=== PATIENT | female | born 1980 | race Caucasian/White ===

== ENCOUNTER 2022-02-09 10:23 | Inpatient (IN) ==
[2022-02-09] MEDS ORDERED: LORazepam 1 MG TAB SL STA (10:57)
--- NOTE | 2022-02-09 10:59 | Emergency Department Note ---
Impression & Plan ST elevation (STEMI) myocardial infarction involving left anterior descending coronary artery, Coronary artery disease ED Provider Note NAME: DANELLE CROWE AGE: 42 SEX: F : 1980 ARRIVES VIA: Walk-In INFORMANT: Patient ED PROVIDER(S): Rudi Castaneda DO CHIEF COMPLAINT: palpitations HPI: Patient is a 42-year-old female with a past medical history of miscarriage who presents to the ER for palpitations. She notes she felt her heart racing since this past Saturday. It has been constant. Is worse when she is up and moving around and improves with rest. She had some mild shortness of breath yesterday. No arm or jaw pain. No belly pain, nausea, vomiting, or diarrhea. No dysuria, urgency, or frequency. No other exacerbating or remitting factors. She denies any history of diabetes, hypertension, hyperlipidemia, CAD but does have a strong family history of heart disease in her 40s. ROS: See above HPI for pertinent positives & negatives. A total of 10 systems reviewed and were otherwise negative. PAST MEDICAL HISTORY:See Below PAST SURGICAL HISTORY:See Below FAMILY HISTORY:See Below SOCIAL HISTORY:See Below HOME MEDICATIONS:See Below ALLERGIES:See Below VITALS:See Below PHYSICAL EXAMINATION: GENERAL: Sitting up in bed, alert, well appearing, well nourished, no distress, non-toxic, obese EYE EXAM: normal conjunctiva. PERRL and EOM's grossly intact. OROPHARYNX: mucous membranes are moist NECK: supple, no nuchal rigidity, no adenopathy, non-tender LUNGS: Clear to auscultation. Normal chest wall mechanics HEART: no murmurs, S1 normal and S2 normal ABDOMEN: abdomen soft, non-tender, normo-active bowel sounds, no masses, no rebound or guarding. UPPER EXTREMITIES: upper extremities are grossly normal. LOWER EXTREMITIES: No pitting edema. Calves are equal bilateral NEURO EXAM: Normal sensorium, cranial nerves II-XII grossly intact, normal speech, no gross weakness of arms, no gross weakness of legs. MEDICAL DECISION MAKING: Patient is a 42-year-old female who presents ER for shortness of breath yesterday and feeling her heart race for the past 3 days. She denies any chest pain. Patient was very upset that she had to have an IV and notes that she normally requires 70 people to hold her down and had to be sedated with 5 of Versed last time. We initially obtained an EKG which showed a STEMI. Following this she was given 2 of Ativan and IV access was obtained while holding her down. She was seen evaluated by interventional cardiology and taken emergently to the lab. They defer chest x-ray until after catheterization. Triage Nursing notes reviewed. Limited review of prior medical records performed Vital Signs: reviewed and remarkable for tachy Differential diagnosis: Differential diagnoses includes but is not limited to pneumonia, bronchitis, COPD/Asthma exacerbation, pneumothorax, pulmonary embolism, congestive heart fa ilure, acute coronary syndrome ER treatment provided: See below Diagnostics interpreted by me: ECG: Sinus rhythm rate of 106 ST segment elevations V3 through V6 with ST depressions in the inferior leads and Q waves Cardiac Monitoring: An order was placed for continuous cardiac monitoring. The monitor shows a rate of 101 with sinus rhythm. Laboratory studies: As stated above and show below. Imaging studies: declined Consultation(s): Discussed with substance abuse clinician Dr. Patton who took the patient to [facility]. Procedures: none Critical Care: I have personally spent 32 minutes of critical care time in the direct management of this patient. This includes bedside care, interpretation of diagnostic studies, and testing, discussion with consultants, patient, and family members, and other required patient management activities. This 32 minutes is in excess of all separately billable procedures. Past Med/Surg History Social History Smoking Status: Never smoker Second Hand Exposure: No; Do You Dip or Chew Tobacco: No; Tobacco Cessation Education Requested by Patient: No Hx Alcohol Use: No Hx Substance Use: No Preferred Language: Turkish Communication Ability: Effective Restaurant Recruiter Required: No Beliefs That Will Affect Care: None Current Living Situation: Spouse and Family Other Information That Helps Us Care for You: No Feels Safe at Home: Yes Safety Concerns: Feels Safe At This Time Assistive Devices: None Allergies Allergies Allergy/AdvReac Type Severity Reaction Status Date / Time No Known Allergies Unverified 05/03/10 20:36 Home Meds Home Medications Medication Instructions Recorded Confirmed METFORMIN HCL (GLUCOPHAGE) 1,000 mg PO BID ##0 02/02/15 Results & Data (ED) Vital Signs Vital Signs - 24 hr 02/09/22 10:34 02/09/22 12:07 Temperature 36.6 C Temperature Source Temporal Artery Scan Pulse Rate 118 H Pulse Rate [Apical] 117 H Pulse Rhythm Regular Pulse Rhythm [Apical] Regular Pulse Strength Normal Pulse Strength [Apical] Normal Respiratory Rate 20 14 Respiratory Effort / Characteristics Non-Labored Spontaneous Non-Labored Spontaneous Respiratory Depth Normal Normal Respiratory Pattern Regular Regular Blood Pressure 123/87 Blood Pressure [Right Arm] 130/92 Blood Pressure Mean 99 Blood Pressure Mean [Right Arm] 104 Blood Pressure Position Sitting Blood Pressure Position [Right Arm] Lying Pulse Oximetry 97 100 Oxygen Delivery Method Room Air Nasal Cannula Oxygen Flow Rate 4 Sepsis Recent Fever Within 48 Hours No Sepsis New/Unexplained Change in Mental Status No Sepsis Action Taken by Nursing No Action Required Laboratory Data Result diagrams: 02/09/22 11:08 02/09/22 11:08 Lab Results 02/09/22 02/09/22 02/09/22 Range/Units 11:08 11:08 11:10 WBC 15.60 H (4.8-10.8) K/ul RBC 4.97 (3.93-5.22) M/uL Hgb 14.2 (12.0-16.0) g/dl Hct 43.9 (34.1-44.9) % MCV 88.3 (80.0-100.0) fL MCH 28.6 (25.0-34.0) pg MCHC 32.3 (32.0-36.0) g/dL RDW Std Deviation 45.6 (36.4-46.3) fL RDW Coeff of Cliff 14.3 (11.5-14.5) % Plt Count 359 (130-400) K/uL MPV 11.7 (9.4-12.3) fL Immature Gran % (Auto) 0.4 % Neut % (Auto) 67.5 % Lymph % (Auto) 21.7 % [place] % (Auto) 8.5 % Eos % (Auto) 1.3 % Baso % (Auto) 0.6 % Neut # (Auto) 10.54 H (1.4-6.5) K/uL Lymph # (Auto) 3.38 (1.2-3.4) K/uL [place] # (Auto) 1.33 H (0.24-0.82) K/uL Eos # (Auto) 0.20 (0-0.50) K/uL Baso # (Auto) 0.09 (0-0.2) K/uL Immature Gran # (Auto) 0.06 H (0.00-0.02) K/uL Sodium 133 L (136-145) mmol/L Potassium 4.1 (3.5-5.1) mmol/L Chloride 103 (98-107) mmol/L Carbon Dioxide 13 L (21-32) mmol/L Anion Gap 17 H (3-11) BUN 11 (6-23) mg/dl Creatinine 0.72 (0.6-1.2) mg/dl Est Cr Clr Drug Dosing 108.4 ml/min Est GFR ( Amer) 119.7 ml/min Est GFR (Non-Af Amer) 103.3 ml/min BUN/Creatinine Ratio 15.3 (10-20) Glucose 307 H* (70-99(Fasting)) mg/dl Calcium 9.5 (8.5-10.1) mg/dl Total Bilirubin 0.5 (0.2-1.0) mg/dl AST 30 (13-39) U/L ALT 14 (7-52) U/L Alkaline Phosphatase 90 (34-104) U/L Troponin I High Sens 4705.3 H* (0-14) pg/ml Total Protein 8.1 (6.0-8.3) gm/dl Albumin 3.9 (3.4-5.0) gm/dl Globulin 4.2 H (2.5-4.0) gm/dl Albumin/Globulin Ratio 0.9 (0.9-2) Lipase < 3 L (11-82) U/L SARS-CoV-2, RNA, NAAT NEGATIVE (NEGATIVE) Administered Medications Heparin Sodium/Dextrose (Heparin Sodium/Dextrose) 25,000 units in 500 mls @ 24 mls/hr IV .[id number] [facility]; Protocol Stop: 03/11/22 13:59 Last Admin: 02/09/22 14:25 Dose: 1,200 units/hr, 24 mls/hr Documented By: ABRAHAM Co-signed By: CG Discontinued Medications Aspirin (Aspirin Chew 324 Mg) 324 mg PO NOW STA Stop: 02/09/22 11:05 Last Admin: 02/09/22 13:27 Dose: Not Given Documented By: ABRAHAM Atorvastatin Calcium (Atorvastatin 40 Mg Tab) 40 mg PO ONE ONE Stop: 02/09/22 12:16 Last Admin: 02/09/22 15:17 Dose: 40 mg Documented By: ABRAHAM Diphenhydramine HCl (Diphenhydramine 50 Mg/Ml Vial) Confirm Administered Dose 50 mg .ROUTE .STK-MED ONE Stop: 02/09/22 11:26 Last Admin: 02/09/22 12:00 Dose: 25 mg Documented By: AURORA Fentanyl Citrate (Fentanyl Citrate 100 Mcg/2 Ml Vial) Confirm Administered Dose 100 mcg .ROUTE .STK-MED ONE Stop: 02/09/22 11:10 Last Admin: 02/09/22 11:59 Dose: 100 mcg Documented By: AURORA Heparin Sodium (Porcine) (Heparin (Porcine) 1000 Unit/Ml 10 Ml (Clock And Watch Hands Dipper Use Only)) Confirm Administered Dose 10,000 units .ROUTE .STK-MED ONE Stop: 02/09/22 11:10 Last Admin: 02/09/22 11:59 Dose: 6,500 units Documented By: AURORA Heparin Sodium/Dextrose (Heparin 78617 Unit/500 Ml D5w) Confirm Administered Dose 25,000 units IV .STK-MED ONE Stop: 02/09/22 12:33 Last Admin: 02/09/22 12:39 Dose: 800 units Documented By: KARLA Co-signed By: AGUSTIN Heparin Sodium/Sodium Chloride (Heparin In Nss Infusion 1000 Unit/500 Ml (2 U/Ml) Bag) Confirm Administered Dose 3,000 units IV .STK-MED ONE Stop: 02/09/22 11:11 Last Admin: 02/09/22 12:00 Dose: 3,000 units Documented By: SETH Heparin Sodium/Dextrose (Heparin Sodium/Dextrose) 25,000 units in 500 mls @ 16 mls/hr IV .Q24H JULISSA; Protocol Stop: 03/11/22 12:29 Last Titration: 02/09/22 14:25 Dose: 0 units/hr, 0 mls/hr Documented By: ABRAHAM Co-signed By: CG Admin: 02/09/22 12:39 Dose: 800 units/hr, 16 mls/hr Documented By: ABRAHAM Co-signed By: RONEY Lorazepam (Lorazepam 1 Mg Tab) 2 mg SL NOW STA Stop: 02/09/22 10:58 Last Admin: 02/09/22 11:13 Dose: 2 mg Documented By: MICK Metoprolol Tartrate (Metoprolol Tartrate 50 Mg Tab) 25 mg PO ONE ONE Stop: 02/09/22 12:16 Last Admin: 02/09/22 15:17 Dose: 25 mg Documented By: ABRAHAM Midazolam HCl (Midazolam Hcl 1 Mg/Ml 2ml Vial) Confirm Administered Dose 2 mg .ROUTE .STK-MED ONE Stop: 02/09/22 11:11 Last Admin: 02/09/22 12:00 Dose: 2 mg Documented By: AURORA Midazolam HCl (Midazolam Hcl 1 Mg/Ml 2ml Vial) Confirm Administered Dose 2 mg .ROUTE .STK-MED ONE Stop: 02/09/22 11:25 Last Admin: 02/09/22 12:00 Dose: 2 mg Documented By: AURORA Miscellaneous (Rapid Sequence Induction Bag) Confirm Administered Dose 1 each .ROUTE .STK-MED ONE Stop: 02/09/22 11:08 Last Admin: 02/09/22 13:26 Dose: Not Given Documented By: ABRAHAM Nicardipine HCl (Nicardipine Hcl Inj 2.5 Mg/Ml 10 Ml Amp) Confirm Administered Dose 25 mg .ROUTE .STK-MED ONE Stop: 02/09/22 11:10 Last Admin: 02/09/22 12:00 Dose: Not Given Documented By: AURORA Nitroglycerin/Dextrose (Nitroglycerin/D5w 100mcg/Ml 20ml Syr) Confirm Administe red Dose 2,000 mcg .ROUTE .STK-MED ONE Stop: 02/09/22 11:12 Last Admin: 02/09/22 12:00 Dose: Not Given Documented By: AURORA Discharge Plan Visit Data Chief Complaint: Arrhythmia/Palpitations Stated Complaint: ABNORMAL HEART PALPITATIONS ED Provider: Rudi Castaneda
[2022-02-09] MEDS ORDERED: ASPIRIN CHEW 324 MG PO STA (11:04)
[2022-02-09] MEDS ORDERED: RAPID SEQUENCE INDUCTION BAG ONE (11:07)
[2022-02-09] MEDS ORDERED: niCARdipine HCL INJ 2.5 MG/ML 10 ML AMP ONE (11:09)
[2022-02-09] MEDS ORDERED: fentaNYL citrate 100 MCG/2 ML VIAL ONE (11:09)
[2022-02-09] MEDS ORDERED: HEPARIN (PORCINE) 1000 UNIT/ML 10 ML (CATH LAB USE ONLY) ONE (11:09)
[2022-02-09] MEDS ORDERED: MIDAZOLAM HCL 1 MG/ML 2ML VIAL ONE ×2 (11:10→11:24)
[2022-02-09] MEDS ORDERED: NITROGLYCERIN/D5W 100MCG/ML 20ML SYR ONE (11:11)
[2022-02-09 11:19] LABS: Basophils # (auto) 0.09 K/uL (0-0.2); Basophils % (auto) 0.6 %; Eosinophils % (auto) 1.3 %; Hematocrit (blood only) 43.9 % (34.1-44.9); Hemoglobin 14.2 g/dl (12.0-16.0); Immature Granulocytes # (auto) 0.06 K/uL (0.00-0.02); Immature Granulocytes % (auto) 0.4 %; Lymphocytes # (auto) 3.38 K/uL (1.2-3.4); Lymphocytes % (auto) 21.7 %; Mean Corpuscular Hemoglobin 28.6 pg (25.0-34.0); Mean Corpuscular Hgb Conc 32.3 g/dL (32.0-36.0); Mean Corpuscular Volume 88.3 fL (80.0-100.0); Mean Platelet Volume 11.7 fL (9.4-12.3); Monocytes # (auto) 1.33 K/uL (0.24-0.82); Monocytes % (auto) 8.5 %; Neutrophils # (auto) 10.54 K/uL (1.4-6.5); Neutrophils % (auto) 67.5 %; Platelet Count 359 K/uL (130-400); RDW Coefficient of Variation 14.3 % (11.5-14.5); RDW Standard Deviation 45.6 fL (36.4-46.3); Red Blood Count 4.97 M/uL (3.93-5.22)
--- NOTE | 2022-02-09 11:21 | Pre Anesthesia Assessment ---
Date of Service February 09, 2022 Pre Sedation Assessment Vital Signs Temp Pulse Resp BP Pulse Ox O2 Del Method 02/09/22 10:34 36.6 C 118 H 20 123/87 97 Room Air Cardiovascular RRR, no murmur, no edema Respiratory normal respiratory effort, lungs clear to auscultation Pre-Sedation Airway Assessment Smoking Status: Former smoker Short, Thick Neck: Yes Mallampati Class: IV ASA III Procedure Planning Current Medications Reviewed: Yes Notes The planned sedation has been discussed with the patient. Informed Consent was obtained. I have identified the patient, determined the appropriateness of sedation and have assessed the patient immediately prior to the procedure. All medicine(s) and interventions are by my order.
[2022-02-09] MEDS ORDERED: diphenhydrAMINE 50 MG/ML VIAL ONE (11:25)
[2022-02-09 11:52] LABS: Troponin I High Sensitivity 4705.3 pg/ml (0-14)
[2022-02-09 11:53] LABS: Alanine Aminotransferase 14 U/L (7-52); Albumin Globulin Ratio 0.9 (0.9-2); Albumin Level 3.9 gm/dl (3.4-5.0); Alkaline Phosphatase 90 U/L (34-104); Anion Gap 17 (3-11); Aspartate Aminotransferase 30 U/L (13-39); BUN Creatinine Ratio 15.3 (10-20); Bilirubin,Total 0.5 mg/dl (0.2-1.0); Blood Urea Nitrogen 11 mg/dl (6-23); Calcium 9.5 mg/dl (8.5-10.1); Carbon Dioxide 13 mmol/L (21-32); Chloride 103 mmol/L (98-107); Creatinine Clr Calc Pharmacy 108.4 ml/min; Est GFR (African American) 119.7 ml/min; Est GFR (Non-African American) 103.3 ml/min; Globulin 4.2 gm/dl (2.5-4.0); Glucose 307 mg/dl (70-99(Fasting)); Lipase < 3 U/L (11-82); Potassium 4.1 mmol/L (3.5-5.1); Sodium 133 mmol/L (136-145); Total Protein 8.1 gm/dl (6.0-8.3)
[2022-02-09] MEDS ORDERED: ATROPINE SULFATE 0.1 MG/ML 10ML SYR IV PRN (12:01)
[2022-02-09] MEDS ORDERED: ONDANSETRON INJ 2 MG/ML 2 ML VIAL IV PRN (12:01)
[2022-02-09] MEDS ORDERED: SODIUM CHLORIDE 0.9% 500 ML IV PRN (12:01)
[2022-02-09] MEDS ORDERED: ACETAMINOPHEN 325 MG TAB PO PRN (12:01)
[2022-02-09] MEDS ORDERED: ATORVASTATIN 40 MG TAB PO ONE (12:15)
[2022-02-09] MEDS ORDERED: METOPROLOL TARTRATE 50 MG TAB PO ONE (12:15)
[2022-02-09] MEDS ORDERED: Heparin IV Adult Wt-Based Low-Dose *NO* Bolus Protocol IV SCH (12:24)
[2022-02-09] MEDS ORDERED: HEPARIN SODIUM/DEXTROSE 25,000 UNITS/500 ML BAG IV SCH ×3 (12:30→14:00)
[2022-02-09] MEDS ORDERED: HEPARIN 25000 UNIT/500 ML D5W IV ONE (12:32)
[2022-02-09] MEDS ORDERED: Heparin IV Adult Wt-Based Standard *NO* Bolus Protocol IV SCH (13:39)
--- NOTE | 2022-02-09 13:54 | Electrocardiogram Report ---
Test Reason : Blood Pressure : / mmHG Vent. Rate : 106 BPM Atrial Rate : 318 BPM P-R Int : 000 ms QRS Dur : 086 ms QT Int : 332 ms P-R-T Axes : 061 -26 045 degrees QTc Int : 441 ms Age and gender specific ECG analysis Sinus tachycardia Low voltage QRS Anterolateral infarct , possibly acute ACUTE TN / STEMI Abnormal ECG No previous ECGs available Confirmed by Mack Gurrola ([id number]) on 02/09/2022 1:54:17 PM Referred By: Confirmed By:Bryn Gurrola
--- NOTE | 2022-02-09 14:00 | Post Anesthesia Assessment ---
Date of Service February 09, 2022 Post Sedation Assessment Vital Signs Temp Pulse Pulse Resp BP BP Pulse Ox 02/09/22 13:16 37.1 C 114 H 16 111/90 97 02/09/22 12:50 118 H 14 145/112 H 100 02/09/22 12:35 114 H 14 127/93 100 02/09/22 12:20 114 H 14 130/92 100 02/09/22 12:07 117 H 14 130/92 100 02/09/22 10:34 36.6 C 118 H 20 123/87 97 O2 Del Method O2 Flow Rate 02/09/22 13:16 Room Air 02/09/22 12:50 Nasal Cannula 4 02/09/22 12:35 Nasal Cannula 4 02/09/22 12:20 Nasal Cannula 4 02/09/22 12:07 Nasal Cannula 4 02/09/22 10:34 Room Air Recovery Score Activity: Moves 4 extremities Respiration: Deep Breath/Cough Circulation: +/-20% PreAnes Value Consciousness: Arouseable (by name) Oxygen Saturation: O2 needed for >90% Post Anesthesia Score: 8 Discharge Sedation Level of Care: Phase I Post Sedation Plan On clinical assessment, the patient appears to have tolerated the sedation without complications. Patient is recovering as anticipated. Patient will continue to be monitored by nursing and may be discharged when sedation discharge criteria are met per below protocol. Upon Completions of procedure up to 15 minutes continue every 5 minute vital signs and the P.A.R. score; then discharge to a Phase I or Fast Track to Phase II per the following guidelines: * Discharge Patient to appropriate Phase II area if PAR is 8 or greater or return to pre- procedure baseline. The post - procedure orders will be as directed. * If PAR score is less than 8 or not return to pre-procedure baseline then patient will follow Phase I monitoring till PAR is reached for Phase II. The Phase I may be done in procedure room or may call to secure a Phase I area. * If naloxone or flumazenil are used for reversal, hold in Phase I for continued monitoring from when last reversal dose was given for a minimum of 60 minutes or longer pending the nurse and/or physician discretion of patient condition before discharge to Phase II. Please call the Sedation Physician to re-evaluate and complete post-note for discharge to Phase II area. Do NOT discharge from procedure sedation or Phase 1 until post- sedation evaluation note is complete by procedure /sedation MD Sedation Discharge Instructions to be given to the patient at discharge to home. [facility] [place] (Charges) Indication for Procedure Indication for procedure: AMI Sedation/Anesthesia Procedure 1: Sedation/Anesthesia: 43263 Mod Sedation by the same physician;Init15 Min Child Age 5 & Up Total Sedation Time (minutes): 30 Procedure 2: Sedation/Anesthesia: 37786 Mod Sedation by the same physician; Ea [id number] Minutes
--- NOTE | 2022-02-09 14:33 | Cardiac Catheterization ---
[facility] Data: Research Professor Cardiac Status Clinical evaluation leading to the procedure CAD Presenation: STEMI Anginal Classification: No Symptoms Heart Failure: No Cardiogenic Shock within 24 Hours: No Cardiac Arrest within 24 Hours: No Imaging Studies Past 6 Months: No Stress Studies Past 6 Months: No STEMI OR Non-STEMI Symptom Onset Date: 02/07/22 Symptom Onset Time: 07:00 Thrombolytics: No Coronary Anatomy Dominant: Right Left Main (% Stenosis): Proximal (20 to 30%) LAD (% Stenosis): Proximal (100%. Mid and distal fill by right to left collateralization) OM1 (% Stenosis): Ostial (100%) OM2 (% Stenosis): Proximal (70%) RCA (% Stenosis): Proximal (30 to 35%), Mid (40%) and Distal (Mild diffuse) R PDA (% Stenosis): Normal (Diffuse mild) R PL1 (% Stenosis): Proximal (50 to 70%) Diagnostic Physicians Name: Ben Patton MD, PhD Closure Device Recommendations: Medical Therapy and/or Counseling and Management Recommendatons (Heart team evaluation regarding surgical versus percutaneous revascularization.) Intraprocedure Events Significant Disection: No Perforation: No Cardiac Cath Procedure Full Procedure Date February 09, 2022 Pre-Procedure Diagnosis Pre-Procedure Diagnosis: STEMI AUC Score AUC Score: 09 Post-Procedure Diagnosis Post-Procedure Diagnosis: Severe CAD Procedure(s) Performed Procedure(s) Performed: Coronary Angiography and Ultrasound Guided Vascular Access Die Barber Ben Patton MD, PhD Estimated Blood Loss Estimated Blood Loss: 10 Medication(s) Medication(s): Diphenhydramine, Fentanyl, Heparin, Lidocaine 1%, Nicardipine, Nitroglycerin and Versed Summary of Findings Brief description: Patient was brought to the cardiac catheterization suite where she was shaved and prepped in a sterile fashion. Sedated using IV Versed, fentanyl, and B enadryl. Soft tissues of the right groin were anesthetized using 10 mL of 1% Xylocaine. Using the ultrasound for guidance, the right femoral artery was accessed and a 6 Portuguese femoral artery sheath was placed. All catheters were advanced and exchanged over a 0.035 J-tip wire. Right coronary angiography was performed in orthogonal views with a 5 Portuguese JR4 diagnostic catheter. Left coronary angiography was performed in orthogonal views with a 6 Portuguese EBU 3.5 guide catheter. The patient had 2 100% occlusive lesions which both appeared to be chronic. However, we did attempt to cross the LAD lesion using a [employer] universal guidewire. This was unsuccessful. We then attempted to cross it using a [place] guidewire which was also unsuccessful. These attempts confirmed that this was a chronic total occlusion. Additionally, patient reported no chest pain heaviness or tightness. The guidewires were removed. Guide catheter was removed. Limited right femoral artery angiography was perfo rmed to evaluate for closure. Findings were favorable, therefore, the femoral artery sheath was exchanged for a 6 Portuguese Angio-Seal closure device. This was deployed in the recommended fashion. We obtained immediate hemostasis and the patient remained hemodynamically stable. This ended the case. Coronary angiography findings: Left main: This is a large-caliber vessel which bifurcates into the LAD and left circumflex. The ostial and proximal vessel appeared to have mild disease. The rest of the vessel is without disease. LAD: This is large caliber and transapical. Proximal segment is 100% occluded at the first septal. The mid and distal LAD fills via right to left collaterals through the septals and the apical LAD. Left circumflex: This is a medium to large caliber vessel. Appears to be nondominant. There is a small to medium caliber branching vessel which is 100% occluded at its origin and likely represents a high arising OM1. The AV groove vessel then gives a large caliber branching OM 2. The proximal portion of this vessel has a long eccentric stenosis of 70%. After the ostium of this obtuse marginal the AV groove vessel has a focal 50% stenosis and becomes progressively smaller as it travels distally terminating as 2 small branch vessels. RCA: This is a large caliber and dominant vessel. Proximal segment has diffuse mild disease of 30%. The mid vessel has 40% stenosis and the distal vessel has diffuse mild disease. RCA bifurcates into a large PDA with mild disease. There is also a large branching posterolateral which has proximal disease of 50 to 70%. RCA provides right to left collateralization to the LAD. Recommendations: The severe coronary lesions in the LAD and branch of the circumflex appear to be chronic total occlusions. There are no acute lesions noted. Therefore, they are not appropriate for PCI within this facility. I would recommend a outpatient evaluation by CT surgery/interventional cardiology (heart team) regarding best strategy for revascularization in this young female (CT surgery versus EMPLOYMENT REPRESENTATIVE PCI). Hemodynamics Rest Ao:: 114/76 mmHg Final Ao: 119/78 mmHg LV: Not performed Recommendations Recommendations: Medical Therapy and/or Counseling and Management Recommendatons (Heart team evaluation regarding surgical versus percutaneous revas cularization.) Specimens Specimens: None Radiation Exposure (mGy) 1304 mGy, fluoroscopy time 6 minutes Contrast (mls) 73 mL Procedural Complication(s) None Disposition Recovery Room\PACU I attest to the content of the Intraoperative Record and any orders documented therein. Any exceptions are noted below. [employer] Card Cath Procedure Codes Cardiac Catheterization Procedure 1: Cardiovascular Cath Procedures: 59260 Coronaries Therapeutic Services & Ancillary Procedure 1: Cardiovascular Tx and Anc Procedures: 01629 Ultrasonic Guidance Vascular Access Moderate Sedation Procedure 1: Sedation/Anesthesia: 80457 Mod Sedation by the same physician;Init15 Min Child Age 5 & Up Procedure 2: Sedation/Anesthesia: 58856 Mod Sedation by the same physician; Ea [id number] Minutes PG Care Time/CCT Total # of Minutes Spent Total Time Spent with Patient: Total time spent is greater than 50% in coordination of care (as documented) at patient's floor/unit and/or counseling patient:
--- NOTE | 2022-02-09 15:12 | History & Physical Report ---
Date of Service February 09, 2022 Assessment & Plan (1) PAF (paroxysmal atrial fibrillation): Plan: This was noted intermittently on the monitor. Suspect this is reason for the tachycardia. We will rate control her with beta-kendra and initiate anticoagulation. (2) Coronary artery disease: Plan: This appears to be severe and chronic. She will be placed on guideline directed medical therapy for secondary prevention of coronary disease. This will include low-dose aspirin, high intensity statin therapy, beta-kendra, and JAMIR inhibitor or angiotensin receptor kendra given her diabetes. (3) ST elevation (STEMI) myocardial infarction involving left anterior descending coronary artery: Plan: This appears to be at most a subacute presentation. Just is likely that she has had occlusion for a long time and that the EKG changes noted were secondary to occlusion of the LAD with superimposed tachycardia. Her troponin is elevated and is likely type II non-ST elevation AL. I note that there are minimal reciprocal ischemic changes on the baseline EKG. 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 She has a large LV thrombus and will remain on heparin drip until we can convert her to oral anticoagulant. (4) Ischemic cardiomyopathy: Plan: Significant LAD territory wall motion abnormality. Official/final echo report is pending. We will obtain a chest x-ray to see if she has any volume overload/pulmonary edema. On physical exam she did not demonstrate any evidence of peripheral edema. Chronic heart failure regimen will likely include Toprol- XL, JAMIR inhibitor/ARB/Entresto as indicated, and loop diuretic. (5) Diabetes: Plan: Her blood sugar was over 300. She takes only metformin and has not been following with a primary care provider. We will check a hemoglobin A1c and ask internal medicine to see her in the hospital to assist in management. (6) Atherogenic dyslipidemia: Plan: Patient is high risk. She will be initiated on high intensity statin therapy. I will obtain a fasting lipid in order to determine her baseline untreated LDL. Target LDL reduction will be greater than or equal to 50%. Plan Patient will remain hospitalized for 48 to 72 hours. She is considered high risk for complication should she leave prematurely before we have adequately treated her LV thrombus and ischemic cardiomyopathy. Admission and Anticipated Discharge Date Admission Date: February 09, 2022 History of Present Illness Chief Complaint: Racing heartbeat, shortness of breath Primary Care Provider: NO PCP 42-year-old morbidly obese diabetic female who does not follow with a primary care provider presented from home after experiencing at least 2 days worth of persistent shortness of breath and racing heartbeat. She has profound anxiety to needles. She is accompanied by her who states that she was fairly short of breath 2 days ago and complaining of racing heartbeat but she did not seek medical attention. She thought she would be okay but things continue to worsen and yesterday she had taken a shower and could barely breathe or walk. After the shower she felt a little bit better so did not seek medical attention. However, today she could barely speak a few words without becoming short of breath. He therefore brought her to the emergency department where initial work-up for shortness of breath was performed. An EKG was obtained and was concerning for ST elevation AL. A "heart alert" was called and on my evaluation she continued to her shortness of breath but was fighting the nursing staff and had to be held down for needlesticks and medication administration. I spoke with the regarding need for emergent cardiac catheterization and he agreed after informed consent was provided. Patient was taken to the cardiac catheterization suite and was heavily sedated during the procedure. Despite this, she did intermittently complain of anxiety. We performed cardiac cat heterization which demonstrated chronic total occlusion in the LAD as well as of a branch vessel of the circumflex. There were no acute thrombotic lesions, no staining of the vessel to suggest acute occlusion. I did attempt to cross the LAD lesion with a guidewire but this was unsuccessful and the lesion was acting like a chronic total occlusion. Patient had no chest pain and after slowing her heart rate her shortness of breath was significantly improved. I therefore decided to abandon further attempts since we do not have cardiac surgery available at this institution. Patient was then returned to the recovery area where a stat echocardiogram was performed. As I feared, she has significant LAD territory wall motion abnormality and there was a large apical thrombus. She was initiated back on heparin and I spoke with her regarding her cardiac situation. She was much more calm at this point and is now ready for work-up and management. 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 No cough or sputum production. No anginal chest pain, heaviness, or tightness. No syncope, near syncope, orthopnea, PND, or edema. She has had a racing heartbeat and shortness of breath. No hematuria or dysuria. No melena. No numbness, tingling, or weakness. The remainder of her 12 point review systems is negative except as per HPI. Physical Exam Constitutional: WD/WN, vitals as above (Morbidly obese. Very anxious.) Eyes: PERRL, conjunctivae normal, anicteric sclerae ENMT: external ear and nose normal, oropharynx normal Neck: Thick. No JVD or bruits appreciated Respiratory: Mildly tachypneic at rest with significant tachypnea with speech. Do not appreciating wheezing or rhonchi. Cardiovascular: Tachycardic, irregular. Difficult to hear any murmurs. No edema. 1+ pulses with the right radial pulse being palpable only. Gastrointestinal (Abdomen): Nontender. Normal active bowel sounds. Musculoskeletal: no cyanosis or clubbing, extremities motor strength 5/5 Neurologic: Cognition is intact. Speech is fluent. No focal deficits. No tremor. Psychiatric: Anxious, uncooperative. Improved post sedation. Results & Data Results & Data ([facility]) Vital Signs (Past 12 Hours) Vital Signs Temp Pulse Pulse Resp BP BP Pulse Ox 02/09/22 14:16 37 C 119 H 20 118/72 97 02/09/22 13:16 37.1 C 114 H 16 111/90 97 02/09/22 12:50 118 H 14 145/112 H 100 02/09/22 12:35 114 H 14 127/93 100 02/09/22 12:20 114 H 14 130/92 100 02/09/22 12:07 117 H 14 130/92 100 02/09/22 10:34 36.6 C 118 H 20 123/87 97 O2 Del Method O2 Flow Rate 02/09/22 14:16 Room Air 02/09/22 13:16 Room Air 02/09/22 12:50 Nasal Cannula 4 02/09/22 12:35 Nasal Cannula 4 02/09/22 12:20 Nasal Cannula 4 02/09/22 12:07 Nasal Cannula 4 02/09/22 10:34 Room Air Code Status & VTE Plan VTE Prophylaxis Plan VTE Prophylaxis will be ordered: Yes Critical Care Time Critical Care Time: Yes Total Critical Care Time: 45 Critical care time was 45 minutes spent in the examination, evaluation, review of records, discussion with family and patient, formulation and implementation of a plan of care, and all associated documentation. This time is exclusive of the time spent in the procedure. PG Care Time/CCT Total # of Minutes Spent Total Time Spent with Patient: Total time spent is greater than 50% in coordination of care (as documented) at patient's floor/unit and/or counseling patient: Critical Care Time: Yes Total Critical Care Time: 45 Coding Level of Care Code 08544 Initial Inpt Care Lvl 3 History Comprehensive Exam Comprehensive Medical Decision Making High Complexity Diagnoses PAF (paroxysmal atrial fibrillation) I48.0 Coronary artery disease I25.10 ST elevation (STEMI) myocardial infarction involving left anterior descending coronary artery I21.02 Ischemic cardiomyopathy I25.5 Diabetes E11.9 Atherogenic dyslipidemia E78.5 Additional Codes Critical Care Time - Critical Care Time: Yes ([id number]) Time Spent (min) 45
--- NOTE | 2022-02-09 15:46 | XRay Report ---
XR chest 1V portable HISTORY: 42 years-old Female SOB acute shortness of breath COMPARISON: None TECHNIQUE: AP view of the chest FINDINGS: Cardiomediastinal and hilar silhouettes are within normal limits. No pneumothorax, pleural effusion, airspace consolidation or overt pulmonary edema. Mild right hemidiaphragmatic elevation. The bones of the chest appear grossly intact. IMPRESSION: No acute process. ACT 112: Negative or not required by law. The above report was generated using voice recognition software. It may contain grammatical, syntax o r spelling errors. Electronically signed by: Anatoliy German M.D. 02/09/2022 3:45 PM
[2022-02-09] MEDS: METOPROLOL TARTRATE 25 MG TAB PO SCH (20:30)
[2022-02-10] MEDS: SODIUM CHLORIDE 0.9% 1000ML 1,000 ML IV SCH ×3 (00:18→11:30)
[2022-02-10 07:16] LABS: Estimated Average Glucose 355 mg/dl
--- NOTE | 2022-02-10 07:56 | Hospitalist Consultation ---
Date of Consultation February 10, 2022 Assessment & Plan (1) ST elevation (STEMI) myocardial infarction involving left anterior descending coronary artery: Presented with dyspnea on exertion, tachycardia, paroxysmal atrial fibrillation with RVR, found to have anterolateral STEMI and taken urgently to the [facility] With chronic total occlusion of LAD and side branch of circumflex possible acute and old occlusion but too small for intervention. 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-cardiology therefore thinks this is a subacute STEMI Started on heparin drip overnight but due to severe needle phobia, has not had any PTT measurements or any labs drawn No chest pain, dyspnea is improved with rate control Unable to trend serial troponin but came in at 4705 ECG without reciprocal changes making acute STEMI unlikely as per cardiology Unfortunately, she lost her peripheral IV and will not allow To get back in due to severe needle phobia-okay for now but if needed in emergency situation, would have to hold her down to place-she is okay with this in an emergent situation -Continued stay on PCU/telemetry -Continue aspirin, high intensity statin, and metoprolol-titrated up today to 50 Mg p.o. twice daily -Unable to check lipid panel but hemoglobin A1c drawn yesterday was significantly elevated at 14%-uncontrolled diabetes is a huge contributor to her severe CAD -Continue to monitor for arrhythmia on telemetry -Eventually could add on lisinopril or Entresto (2) Ischemic cardiomyopathy: EF moderately-severely reduced at 35-40% with large apical thrombus and severe LAD territory wall motion abnormalities, moderate LVH Does not have evidence of significant volume overload. Shortness of breath is now improved with rate control is most likely related to increased demand in the setting of severe CAD. -Continue metoprolol titrate for now and eventually convert to Toprol-XL -Eventually will need to add on lisinopril or Entresto -Monitor I's and O's, daily weights, changed to low-sodium diet and fluid restrict to 1500 mL -Discontinue heparin drip as PTTs cannot be measured. She is not a good candidate for Coumadin due to need for INR checks. Start Eliquis 5 Mg p.o. twice daily as per my discussion with cardiology for both LV thrombus as well as atrial fibrillation (3) PAF (paroxysmal atrial fibrillation): Noted to be in rapid atrial fibrillation with paroxysmal's upon initial presentation Now in sinus rhythm since after cardiac catheterization Start Eliquis and metoprolol as above Follow on telemetry (4) Needle phobia: Severe, significantly impacting the ability to properly care for her in the setting of acute coronary syndrome She reports her phobia has significantly increased over the last few years However, she is stable at this point in time Her peripheral IV has now been lost as well Consult to psychiatry appreciated-this is not a good time for exposure therapy but would recommend this as an outpatient and to follow with a psychologist or therapist for this If IV access is needed, patient agreeable to anesthesia evaluation for inhaled anesthetics as oral benzodiazepines do not work for her For now, will not do any blood draws or Accu-Cheks for blood sugars Patient wants us to know that she wants any life-saving measures done even if it involves needlesticks in the future even if she is saying "no" in the setting of trying to stick her with a needle as that is her natural reaction to say the word "no" if anyone is coming at her with a needle. (5) Diabetes: In 2019, patient reports a known hemoglobin A1c of 6.3% and she was on metformin for PCOS in the past She is not been seen by PCP and has not been on any medications for this There is a strong family history of diabetes at young ages and her family She did have an anion gap metabolic acidosis upon admission, but no blood gas was performed likely due to her severe phobia of needles and inability to do so Hemoglobin A1c on admission is now 14% which is severely uncontrolled. She reports no symptoms of hyperglycemia that she is aware of. She is not willing to have Accu-Cheks performed or insulin shots. -Start glipizide 5 mg p.o. every morning for now and titrate up as tolerated -We will plan to start metformin 1000 mg p.o. twice daily when safe to do so 48 hours after cardiac catheterization There will be no good way for her to monitor her blood sugars. Ultimately, getting off of glipizide would be ideal to avoid potential hypoglycemia -Counseled on weight loss and diabetic diet -Could certainly add Jardiance to her regimen for both diabetes and heart fail ure as an outpatient (6) Coronary artery disease: As above, severe After stabilization, will need referral to CT surgery at [facility] in [place] for evaluation for CABG (7) LV (left ventricular) mural thrombus: As above, start Eliquis No history of bleeding issues but is still menstruating-warned of risk of menorrhagia and to follow-up with STAFF TOXICOLOGIST if this happens (8) Atherogenic dyslipidemia: Start high intensity statin No lipid panel able to be drawn Plan DVT prophylaxis-Eliquis Disposition-continued stay in PCU I will take over as the primary attending on this case as per my discussion with cardiology today. History of Present Illness Reason for Consultation: Medical management Requesting Physician: Dr. Patton Attending Physician: Ben Patton MD, PhD History of Present Illness This patient is a 42-year-old female with history of prediabetes, obesity, and severe needle phobia, who presented to the ER with heart palpitations and shortness of breath going on for approximately 4 days or so. The symptoms were worse when she would exert herself and improved with rest. She never had any chest, arm, or jaw pain. No nausea or vomiting, no diaphoresis. She does not see a primary care doctor regularly since she had a disagreement with her previous [facility] PCP in 2019. She finally came to the ER after she became extremely short of breath with speaking sentences. In the ER, she was found to have an ST elevation SD and was taken urgently to the cardiac catheterization lab. Of note, due to her severe phobia of needles, she was sedated with multiple doses of benzodiazepines and still took multiple staff members to hold her down to get an IV. During the cardiac catheterization, she was found to have a chronic total occlusion of the LAD as well as branch vessel and circumflex. There is unsuccessful attempts at crossing the LAD lesion. She was also in and out of atrial fibrillation and when her rates were better controlled, her symptoms improved. She had a stat echocardiogram performed which showed severely reduced EF and LAD territory severe wall motion abnormalities and a large apical thrombus with aneurysm. She was placed on a heparin drip overnight. This morning, she is refusing all lab draws due to her severe needle phobia. She has not had a PTT drawn since being on heparin drip and this was discontinued in favor of Eliquis. Patient reports feeling much better. Has some dyspnea with moving around the bed and has not been out of bed yet. No chest pains. Today at rest, but reports that if anyone comes at her with a needle, she cannot help but try to punch and kick to defend herself. She knows that this is illogical but cannot help her self and still wants all life-saving measures performed if an emergent situation and wants to know that consent is given in advance even if she screams "no" if asked in the middle of a crisis about procedures and and needlesticks. She reports that she has not seen a physician in several years. She has not been taking metformin in 3 years or any medications. I discussed her care with both Dr. Patton as well as Dr. Shaw of cardiology today. Telemetry remains with normal sinus rhythm since admission with rates in the 90s to 100s. No atrial fibrillation. Allergies Allergy/AdvReac Type Severity Reaction Status Date / Time No Known Allergies Unverified 05/03/10 20:36 Home Medications Medication Instructions Recorded Confirmed Type METFORMIN HCL (GLUCOPHAGE) 1,000 mg PO BID ##0 02/02/15 History Patient History Medical History (Updated 02/10/22 @ 19:28 by Adrienne Phillips MD) Atherogenic dyslipidemia Coronary artery disease Diabetes Hernia of abdominal wall LV (left ventricular) mural thrombus Miscarriage Needle phobia PAF (paroxysmal atrial fibrillation) ST elevation (STEMI) myocardial infarction involving left anterior descending coronary artery Surgical History History of section X2 History of salpingectomy x 2 History of ventral hernia repair History of wisdom tooth extraction Family History Other Coronary heart disease Diabetes Social History Smoking Status: Never smoker Second Hand Exposure: No; Do You Dip or Chew Tobacco: No; Tobacco Cessation Education Requested by Patient: No Hx Alcohol Use: No Hx Substance Use: No Preferred Language: Guyanese Communication Ability: Effective Inspector Precision Assembly Required: No Beliefs That Will Affect Care: None Current Living Situation: Spouse and Family Other Information That Helps Us Care for You: No Feels Safe at Home: Yes Safety Concerns: Feels Safe At This Time Assistive Devices: None Review of Systems Review of Systems: All systems reviewed & are unremarkable except as noted in HPI & below Physical Exam Constitutional: WD/WN, vitals as above Eyes: + anicteric sclerae ENMT: external ear and nose normal, oropharynx normal Neck: trachea midline, no thyromegaly Respiratory: normal respiratory effort, lungs clear to auscultation Cardiovascular: RRR, no murmur, no edema Chest (Breasts): Chest: normal inspection of chest Gastrointestinal (Abdomen): Inspection/Auscultation: normal bowel sounds and + visible herniation; + abdomen abnormal to inspection (incisional scar lower abd) and abdomen not distended Percussion/Palpation: abdomen soft and + hernia (large ventral hernia periumbilical, reducible,nontender); abdomen nontender Musculoskeletal: Extremities: extremities normal to inspection; no cyanosis and no clubbing Skin: no rashes, warm and dry Neurologic: moves all extremities and awake; no focal motor deficits Psychiatric: A+Ox3, euthymic affect Lymphatic: no lymphedema Results & Data Results & Data ([facility]) Vital Signs (Past 12 Hours) Vital Signs Temp Pulse Pulse Resp BP BP Pulse Ox 02/10/22 03:50 36.9 C 102 H 20 113/79 96 02/09/22 20:00 92 H 02/09/22 23:02 36.9 C 97 H 19 107/71 97 02/09/22 19:39 37.0 C 106 H 18 110/81 97 O2 Del Method 02/10/22 03:50 Room Air 02/09/22 20:00 02/09/22 23:02 Room Air 02/09/22 19:39 Room Air Laboratory Results 02/09/22 02/09/22 02/09/22 Range/Units 20:04 20:04 20:04 APTT Cancelled PTT Ratio Cancelled Estimat Average Glucose 355 mg/dl Hemoglobin A1c 14.0 H (4.5-5.6) % B-Natriuretic Peptide 315 H (0-100) pg/ml PG Care Time/CCT Total # of Minutes Spent Total Time Spent with Patient: Total time spent is greater than 50% in coordination of care (as documented) at patient's floor/unit and/or counseling patient: Coding Level of Care Code 39393 Inpt Consult Level [address] elevation (STEMI) myocardial infarction involving left anterior descending coronary artery I21.02 Ischemic cardiomyopathy I25.5 PAF (paroxysmal atrial fibrillation) I48.0 Needle phobia F40.298 Diabetes E11.9 Coronary artery disease I25.10 LV (left ventricular) mural thrombus I51.3 Atherogenic dyslipidemia E78.5
[2022-02-10] MEDS: APIXABAN 5 MG TABLET PO SCH ×2 (08:52→20:44)
[2022-02-10] MEDS: glipiZIDE 5 MG TAB PO SCH (08:52)
[2022-02-10] MEDS: METOPROLOL TARTRATE 25 MG TAB PO SCH (08:53)
[2022-02-10] MEDS: ASPIRIN 81 MG ECTAB PO SCH (08:53)
[2022-02-10] MEDS: ATORVASTATIN 40 MG TAB PO SCH (08:53)
[2022-02-10] MEDS ORDERED: ATORVASTATIN 40 MG TAB PO SCH (09:00)
--- NOTE | 2022-02-10 09:41 | Cardiology Progress Note ---
Date of Service February 10, 2022 Assessment & Plan (1) ST elevation (STEMI) myocardial infarction involving left anterior de scending coronary artery: (2) Ischemic cardiomyopathy: (3) PAF (paroxysmal atrial fibrillation): (4) Atherogenic dyslipidemia: Plan 1. Myocardial infarction: Presumably several days old, due to an occluded vessel for which intervention was not attempted due to the age of the infarction. She is asymptomatic. Treatment at this point is with oral medications only, she is on beta-blockade which we will have to titrate very slowly as we are using oral medications and we do not want to overshoot. 2. Ischemic cardiomyopathy: She has left ventricular dysfunction due to her coronary disease, I am hopeful that some of her left ventricular dysfunction is stunning and she may have recovery. We do not know the extent of her troponin elevation since we cannot trend the measurements due to her refusing blood draws. 3. LV clot: She has a left ventricular clot, she has refused intravenous anticoagulation (such as blood draws) therefore she is now on Eliquis. 4. Atrial fibrillation: She is reported to have periods of atrial fibrillation but that has not been seen on telemetry. She will be treated with beta-blockade and Eliquis in any case should these recur. 5. Dyslipidemia: She is on atorvastatin, she is on 40 mg daily which is probably sufficient for now but over the long run we may have to increase that dose. I did talk to her at length about the implications of not allowing us to treat things as we normally would, and pointed out that her outcome will probably not be as good as it would be if we could do standard treatment. She does however seem to be doing relatively well and we can place her on the appropriate oral medications. Admission and Anticipated Discharge Date Admission Date: February 09, 2022 Subjective Events of the last day reviewed in detail. The patient tells me that no one has talked to her since the Lab Analyst so she did not have an understanding of what had transpired, currently she appears to be comfortable and asymptomatic. She does have an IV running however has refused blood draws (without heavy sedation). She is therefore being treated conservatively with oral medications and IV fluid. Physical Exam Physical Exam: Constitutional: Alert, cooperative and in no distress. HEENT: Unremarkable Neck: No jugular venous distention, carotid pulses are normal and equal bilaterally without bruits. Pulmonary: Clear to auscultation bilaterally. Cardiac: Regular somewhat rapid rhythm with no murmur, gallop or rub. Abdomen: Soft, nontender with normal bowel sounds. Extremities: No edema. Distal pulses intact. Neurologic: No focal findings. Gait is steady. Skin: No rash, ecchymoses or petechiae. Results & Data ([facility]) Vital Signs (Past 12 Hours) Vital Signs Temp Pulse Resp BP BP Pulse Ox O2 Del Method 02/10/22 08:00 Room Air 02/10/22 08:08 37.5 C 107 H 18 113/78 96 Room Air 02/10/22 03:50 36.9 C 102 H 20 113/79 96 Room Air 02/09/22 23:02 36.9 C 97 H 19 107/71 97 Room Air Laboratory Results Cardiac Enzymes 02/09/22 02/09/22 Range/Units 11:08 20:04 AST 30 (13-39) U/L Troponin I High Sens 4705.3 H* (0-14) pg/ml B-Natriuretic Peptide 315 H (0-100) pg/ml Coagulation 02/09/22 02/09/22 Range/Units 20:04 20:04 APTT Cancelled B-Natriuretic Peptide 315 H (0-100) pg/ml CBC 02/09/22 Range/Units 11:08 WBC 15.60 H (4.8-10.8) K/ul RBC 4.97 (3.93-5.22) M/uL Hgb 14.2 (12.0-16.0) g/dl Hct 43.9 (34.1-44.9) % Plt Count 359 (130-400) K/uL Neut # (Auto) 10.54 H (1.4-6.5) K/uL Lymph # (Auto) 3.38 (1.2-3.4) K/uL La[place] # (Auto) 1.33 H (0.24-0.82) K/uL Eos # (Auto) 0.20 (0-0.50) K/uL Baso # (Auto) 0.09 (0-0.2) K/uL Comprehensive Metabolic Panel 02/09/22 Range/Units 11:08 Sodium 133 L (136-145) mmol/L Potassium 4.1 (3.5-5.1) mmol/L Chloride 103 (98-107) mmol/L Carbon Dioxide 13 L (21-32) mmol/L BUN 11 (6-23) mg/dl Creatinine 0.72 (0.6-1.2) mg/dl Glucose 307 H* (70-99(Fasting)) mg/dl Calcium 9.5 (8.5-10.1) mg/dl AST 30 (13-39) U/L ALT 14 (7-52) U/L Alkaline Phosphatase 90 (34-104) U/L Total Protein 8.1 (6.0-8.3) gm/dl Albumin 3.9 (3.4-5.0) gm/dl Intake and Output 02/09/22 02/10/22 02/10/22 22:59 06:59 14:59 Intake Total 323.6 / 901.6 350 / 901.6 302.4 / 302.4 Balance 323.6 / 901.6 350 / 901.6 302.4 / 302.4 Intake: IV 113.6 / 141.6 302.4 / 302.4 Heparin Sodium/Dextrose 25,000 113.6 / 113.6 302.4 / 302.4 units In 500 ml @ 1,200 UNITS/ HR 24 mls/hr IV .[id number] [facility] Rx #:[id number] Oral 210 / 760 350 / 760 Other: # Unmeasured Voids 2 1 Weight 98.5 kg Weight Measurement Method Built in [facility] Diagnostic Findings ECG: Her recent electrocardiogram shows anterolateral ST elevation consistent with an evolving anterolateral myocardial infarction. Telemetry: Sinus tachycardia with a gradual reduction in heart rate, currently running around 100 on average. No atrial fibrillation on telemetry. PG Care Time/CCT Total # of Minutes Spent Total Time Spent with Patient: Total time spent is greater than 50% in coordination of care (as documented) at patient's floor/unit and/or counseling patient: Coding Level of Care Code 44835 Subseq Hosp Care Lvl [address] elevation (STEMI) myocardial infarction involving left anterior descending coronary artery I21.02 Ischemic cardiomyopathy I25.5 PAF (paroxysmal atrial fibrillation) I48.0 Atherogenic dyslipidemia E78.5
[2022-02-10] MEDS ORDERED: METOPROLOL TARTRATE 25 MG TAB PO STA (09:45)
--- NOTE | 2022-02-10 10:53 | Psychiatric Consultation ---
Date of Consultation February 10, 2022 Impression / Recommendations Impression 42 yo female with no formal psych hx, severe needle phobia for decades. She is open to any/all medical treatment if she can be sedated for necessary blood draws/injections. She has no hx of substance use and is in no way med seeking. (1) Needle phobia: Plan given that IV Ativan and PO benzo inadequate and she requires acute medical treatment and is too severe to begin exposure therapy, would support sedation for better access for blood draws. Dr. Phillips notified and will consider anesthesia consult for placement of PICC. Liaison to provide support and can assist with therapy referral closer to discharge. Psych History Identifying Data 42 yo female from [place] admit with STEMI, paroxysmal Afib, ischemic cardiomyopathy s/p cath. Consult is by Dr. Phillips. Chief Complaint severe needle phobia History of Present Illness No formal psych hx, "I didn't have the best childhood but don't think the cause of this." needle phobia since childhood, now avoids all doctor's appoi ntments/care due to fear she will require a shot. Patient has received Ativan and Valium with little benefit and reports upset that she has to be restrained by 6-8 staff for IV sites. Floor expressed concern that heparin drip had to be stopped despite thrombus as would not consent to blood draws. She also has fear of bugs crawling on her skin, otherwise she denies significant anxiety at baseline. She reports a good relationship with her and 2 boys (17 and 10 yo) who arrived near the end of our visit. She is upset with how her phobia impacts her current care and processed reactions of staff. She has a history of rather negative interactions with a former PCP. She reported some adjustment issues after loss of a parent as a sibling misused her dad's credit card but no active stressors. Working as an forensic accountant. She denied suicidal ideaiton. She denied any history of psych meds, therapy, or inpatient care. Allergies Allergy/AdvReac Type Severity Reaction Status Date / Time No Known Allergies Unverified 05/03/10 20:36 Home Medications Medication Instructions Recorded Confirmed Type METFORMIN HCL (GLUCOPHAGE) 1,000 mg PO BID ##0 02/02/15 History Personal History Beliefs That Will Affect Care: None Patient History Social History Smoking Status: Never smoker Second Hand Exposure: No; Do You Dip or Chew Tobacco: No; Tobacco Cessation Education Requested by Patient: No Hx Alcohol Use: No Hx Substance Use: No Preferred Language: Bulgarian Communication Ability: Effective Ski Instructor Required: No Beliefs That Will Affect Care: None Current Living Situation: Spouse and Family Other Information That Helps Us Care for You: No Feels Safe at Home: Yes Safety Concerns: Feels Safe At This Time Assistive Devices: None Physical Exam Psychiatric: Orientation: alert and oriented x 3 Apperance: appropriately dressed and appropriately groomed Eye Contact: good eye contact Motor Behavior: no abnormal motor movements Speech: normal rate/rhythm/volume of speech Affect: + anxious affect Mood: + anxious mood Thought Process: + perseveration Thought Content: reality based without delusions Suicidal Thoughts: denies suicidal thoughts Homicidal Thoughts: denies homicidal thou ghts Hallucinations: no auditory hallucinations and no visual hallucinations Cognition: attention grossly intact and language grossly intact Estimated Intelligence: consistent with education level Vital Signs (Past 24 Hours): Last Vital Signs Temp 37.5 C 02/10/22 08:08 Pulse 107 H 02/10/22 08:08 Resp 18 02/10/22 08:08 BP 113/78 02/10/22 08:08 Pulse Ox 96 02/10/22 08:08 O2 Del Method 02/10/22 08:08 O2 Flow Rate 4 02/09/22 12:50 Review of Systems All systems reviewed & are unremarkable except as noted in HPI & below Results & Data ([facility]) Medications Administered Apixaban (Apixaban 5 Mg Tablet) 5 mg PO BID [facility] Stop: 03/12/22 08:59 Last Admin: 02/10/22 08:52 Dose: 5 mg Documented By: RAJAT Aspirin (Aspirin 81 Mg Ectab) 81 mg PO QAM [facility] Stop: 03/12/22 08:59 Last Admin: 02/10/22 08:53 Dose: 81 mg Documented By: RAJAT Atorvastatin Calcium (Atorvastatin 40 Mg Tab) 40 mg PO QAM [facility] Stop: 03/12/22 08:59 Last Admin: 02/10/22 08:53 Dose: 40 mg Documented By: RAJAT Glipizide (Glipizide 5 Mg Tab) 5 mg PO QDB [facility] Stop: 03/12/22 07:59 Last Admin: 02/10/22 08:52 Dose: 5 mg Documented By: RAJAT Sodium Chloride (Nss 1000ml) 1,000 mls @ 75 mls/hr IV .[id number] [facility] Stop: 03/11/22 12:14 Last Admin: 02/10/22 00:25 Dose: 75 mls/hr Documented By: Admin: 02/10/22 00:18 Dose: Not Given Documented By: JUAN Coding Level of Care Code 44147 U Intl Hosp Care Lvl 2 Diagnoses Needle phobia F40.298
--- NOTE | 2022-02-10 16:42 | Electrocardiogram Report ---
Test Reason : Blood Pressure : / mmHG Vent. Rate : 106 BPM Atrial Rate : 106 BPM P-R Int : 164 ms QRS Dur : 084 ms QT Int : 344 ms P-R-T Axes : 026 -23 032 degrees QTc Int : 456 ms Age and gender specific ECG analysis Sinus tachycardia Inferior infarct (cited on or before 09-FEB-2022) Anterolateral infarct (cited on or before 09-FEB-2022) ACUTE ND / STEMI Abnormal ECG When compared with ECG of 09-FEB-2022 10:57, Serial changes of evolving Lateral infarct Confirmed by Sam Shaw ([id number]) on 02/10/2022 4:41:29 PM Referred By: Ben Patton Confirmed By:Sam Shaw
[2022-02-10] MEDS: METOPROLOL TARTRATE 50 MG TAB PO SCH (20:44)
[2022-02-11] MEDS: glipiZIDE 5 MG TAB PO SCH (07:36)
[2022-02-11] MEDS: ASPIRIN 81 MG ECTAB PO SCH (08:37)
[2022-02-11] MEDS: ATORVASTATIN 40 MG TAB PO SCH (08:37)
[2022-02-11] MEDS: METOPROLOL TARTRATE 50 MG TAB PO SCH ×2 (08:37→20:43)
[2022-02-11] MEDS: APIXABAN 5 MG TABLET PO SCH ×2 (08:37→20:43)
--- NOTE | 2022-02-11 12:07 | Hospitalist Progress Note ---
Date of Service February 11, 2022 Assessment & Plan (1) ST elevation (STEMI) myocardial infarction involving left anterior donnell cending coronary artery: Plan: Presented with dyspnea on exertion, tachycardia, paroxysmal atrial fibrillation with RVR, found to have anterolateral STEMI and taken urgently to [facility] With chronic total occlusion of LAD and side branch of circumflex possible acute and old occlusion but too small for intervention. 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-cardiology therefore thinks this is a subacute STEMI Started on heparin drip overnight but due to severe needle phobia, was not able to have any PTT measurements or any labs drawn No chest pain, dyspnea is improved with rate control Unable to trend serial troponin but came in at troponin of 4705 ECG without reciprocal changes making acute STEMI unlikely as per cardiology Unfortunately, she lost her peripheral IV and will not allow a new one to be placed back in due to severe needle phobia-okay for now but if needed in emergency situation, would have to hold her down to place-she is okay with this in an emergent situation -Continued stay on PCU/telemetry for arrhythmia monitoring x 24 more hours -Continue aspirin, high intensity statin, and metoprolol-change to Toprol XL 100mg po daily for tomorrow -Unable to check lipid panel but hemoglobin A1c drawn on admission was significantly elevated at 14%-uncontrolled diabetes is a huge contributor to her severe CAD - add on lisinopril 2.5mg po daily (would switch to Entresto only if developed class 2 heart failure symptoms) -ideally would like to check renal function, potassium, etc. with starting ACEi, but this will not be likely unless she has conscious sedation for lab draws -she should f/u with Cardiology/Dr. Ben Patton within 1 week as an outpt and then consideration is to be made to refer for CT Surgery eval-she wishes to go to [facility] for this (2) Ischemic cardiomyopathy: Plan: EF moderately-severely reduced at 35-40% with large apical thrombus and severe LAD territory wall motion abnormalities, moderate LVH Does not have evidence of significant volume overload. Shortness of breath is now improved with rate control is most likely related to increased demand in the setting of severe CAD. -Continue metoprolol and convert to Toprol-XL 100mg daily for tomorrow -add on lisinopril as above-start low dose as unable to check labs -Monitor I's and O's, daily weights, low-sodium diet and fluid restrict to 1500 mL -Discontinued heparin drip as PTTs could not be measured. She is not a good candidate for Coumadin due to need for INR checks. Started Eliquis 5 Mg p.o. twice daily as per my discussion with cardiology for both LV thrombus as well as atrial fibrillation -will need close f/u as an outpt -consider addition of Jardiance or SGLT-2 for heart failure and DM as outpt- defer to PCP or Cardiology (3) PAF (paroxysmal atrial fibrillation): Plan: Noted to be in rapid atrial fibrillation with paroxysmal's upon initial presentation Now remains in sinus rhythm since cardiac catheterization Started Eliquis and metoprolol as above Follow on telemetry (4) Needle phobia: Plan: Severe, significantly impacting the ability to properly care for her in the set ting of acute coronary syndrome She reports her phobia has significantly increased over the last few years especially after suffering 5 miscarriages, 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 This will be CRUCIAL to her future prognosis as she will most certainly need nee dle sticks in her lifetime to manage her severe comorbidities I have referred her to [facility] for both Psychiatry, Psychology assistance. I also referred her to Dr. Soumya Garrido at [facility] Primary care for PCP, obesity management Pt really needs an excellent doctor who is willing to work with her anxieties over medical testing If IV access is needed, patient agreeable to anesthesia evaluation for inhaled anesthetics as oral benzodiazepines do not work for her For now, will not do any blood draws or Accu-Cheks for blood sugars Patient wants us to know that she wants any life-saving measures done even if it involves needlesticks in the future even if she is saying "no" in the setting of trying to stick her with a needle as that is her natural reaction to say the word "no" if anyone is coming at her with a needle. (5) Diabetes: Plan: In 2019, patient reports a known hemoglobin A1c of 6.3% and she was on metformin for PCOS in the past She is not been seen by PCP and has not been on any medications for this There is a strong family history of diabetes at young ages and her family She did have an anion gap metabolic acidosis upon admission, but no blood gas was performed likely due to her severe phobia of needles and inability to do so Hemoglobin A1c on admission is now 14% which is severely uncontrolled. She reports no symptoms of hyperglycemia that she is aware of. She is not willing to have Accu-Cheks performed or insulin shots. -Started glipizide 5 mg p.o. every morning for now and titrate up as tolerated as an outpatient -We will plan to start metformin 1000 mg p.o. twice daily when safe to do so 48 hours after cardiac catheterization-will prescribe on discharge There will be no good way for her to monitor her blood sugars. Ultimately, getting off of glipizide would be ideal to avoid potential hypoglycemia -Counseled on weight loss and diabetic diet-referred to Obesity Medicine specialist, Dr. Garrido -Could certainly add Jardiance to her regimen for both diabetes and heart failure as an outpatient (6) Coronary artery disease: Plan: As above, severe After stabilization, will need referral to CT surgery at [facility] in [place] for evaluation for CABG vs high risk PCI (7) LV (left ventricular) mural thrombus: Plan: As above, start Eliquis No history of bleeding issues but is still menstruating-warned of risk of menorrhagia and to follow-up with [employer] if this happens (8) Atherogenic dyslipidemia: Plan: Started high intensity statin No lipid panel able to be drawn Plan DVT prophylaxis-Eliquis Disposition-continued stay in PCU, but likely dc to home tomorrow if stable Admission and Anticipated Discharge Date Admission Date: February 09, 2022 Subjective Pt reports a lot of post-nasal drip causing her to cough. SHe gets allergic rhinitis and typically it improves with an antihistamine. She does not like using nasal steroid sprays. Denies chest pain, SOB, abd pains. Tele witth NSR-ST, rates 90-100s I discussed her care with Cardiology Review of Systems Review of Systems: All systems reviewed & are unremarkable except as noted in HPI & below Physical Exam Constitutional: WD/WN, vitals as above Eyes: + anicteric sclerae Neck: trachea midline, no thyromegaly Respiratory: normal respiratory effort, lungs clear to auscultation Cardiovascular: RRR, no murmur, no edema right femoral groin site without hematoma or pulsating mass Chest (Breasts): Chest: normal inspection of chest Gastrointestinal (Abdomen): Inspection/Auscultation: normal bowel sounds and + visible herniation; + abdomen abnormal to inspection (incisional scar lower abd) and abdomen not distended Percussion/Palpation: abdomen soft and + hernia ( large ventral hernia periumbilical, reducible,nontender); abdomen nontender Musculoskeletal: Extremities: extremities normal to inspection; no cyanosis and no clubbing Skin: no rashes, warm and dry Neurologic: moves all extremities and awake; no focal motor deficits Psychiatric: A+Ox3, euthymic affect Lymphatic: no lymphedema Results & Data Results & Data ([facility]) Vital Signs (Past 12 Hours) Vital Signs Temp Pulse Resp BP BP Pulse Ox O2 Del Method 02/11/22 11:29 36.9 C 92 H 18 128/87 93 Room Air 02/11/22 07:29 36.8 C 94 H 20 127/84 97 Room Air 02/11/22 03:25 37.2 C 90 20 145/92 H 96 PG Care Time/CCT Total # of Minutes Spent Total Time Spent with Patient: Total time spent is greater than 50% in coordination of care (as documented) at patient's floor/unit and/or counseling patient: Coding Level of Care Code 03044 Subseq Hosp Care Lvl [address] elevation (STEMI) myocardial infarction involving left anterior descending coronary artery I21.02 Ischemic cardiomyopathy I25.5 PAF (paroxysmal atrial fibrillation) I48.0 Needle phobia F40.298 Diabetes E11.9 Coronary artery disease I25.10 LV (left ventricular) mural thrombus I51.3 Atherogenic dyslipidemia E78.5
[2022-02-11] MEDS: LORATADINE 10 MG TAB PO SCH (13:01)
--- NOTE | 2022-02-11 16:30 | Cardiology Progress Note ---
Date of Service February 11, 2022 Assessment & Plan (1) ST elevation (STEMI) myocardial infarction involving left anterior de scending coronary artery: (2) Coronary artery disease: (3) Ischemic cardiomyopathy: (4) LV (left ventricular) mural thrombus: Plan ASSESSMENT/PLAN: 1. STEMI: No angina. Reportedly subacute presentation. LAD lesion was unable to be crossed with interventional wire. Interventional cardiology has recommended medical therapy with consideration of evaluation of the CT surgery capable center for consideration of CABG versus SPINNER FIXER PCI. Continue beta-kendra. Continue aspirin 81 mg daily. High-intensity statin therapy. Recommend JAMIR- inhibitor. 2. Ischemic cardiomyopathy: She does not appear hypervolemic on exam, however difficult neck exam. Based on her description, class 1 symptoms. Will start metoprolol succinate tomorrow morning in place of metoprolol tartrate. Would titrate as tolerated. Recommend JAMIR-inhibitor. If she should develop class 2 symptoms or greater, would recommend Entresto. Recommend labs in 5-7 days to monitor renal function and potassium. She is not against doing such and has inquired about having outpatient labs arranged with sedation. Difficult situation. Unclear if this would be possible or not. If unable to monitor labs, may need to reconsider the use of medications that would require such monitoring, for safety reasons. For now, while inpatient, start low-dose lisinopril. Low-sodium diet. Diuretic not necessary at this time. ICD for primary prevention is not indicated at current EF. 3. LV thrombus: She is on anticoagulation therapy. Recommend monitoring CBC periodically. 4. CAD: As described by interventional Cardiology, found to have occluded LAD, OM1, severe CAD of OM2, and otherwise nonobstructive CAD. Right to left collaterals reported. No angina. Continue aspirin, high-intensity statin therapy, beta-kendra. Start JAMIR-inhibitor and can continue with able to monitor labs periodically. 5. Disposition: She is hoping to be discharged tomorrow. No evidence of arrhythmia thus far. Follow-up within [address] Patton, in the cardiology office. Plan of care discussed with Dr. Phillips of the primary hospitalist service. Admission and Anticipated Discharge Date Admission Date: February 09, 2022 Subjective Patient denies chest pain, further palpitations, shortness of breath, syncope, near-syncope, edema, or bleeding such as melena, hematochezia, or hematuria. She has not had any further labs other than from 02/09/2022 due to her phobia of needles. She states that she is agreeable to have labs done if she is heavily sedated. She was alone in her hospital room. She would like to be discharged tomorrow. Physical Exam Physical Exam: Gen.: No acute distress. Alert and oriented. HEENT: Anicteric sclera. Neck: Thick neck. Cardiac: Regular. No ectopy. Normal S1-S2. No murmurs, rubs, or gallops. Pulmonary: Clear to auscultation bilaterally without wheezes, rales, or rhonchi. Abdomen: Soft, nontender, nondistended, with normoactive bowel sounds. No bruits noted. Extremities: Right radial pulse was not palpable. 1+ left radial pulse. 1+ dorsalis pedis pulse bilaterally. Right femoral catheterization site without hematoma. No edema or cyanosis. Psychiatric: Affect appears appropriate. Results & Data ([facility]) Vital Signs (Past 12 Hours) Vital Signs Temp Pulse Pulse Resp BP BP Pulse Ox 02/11/22 08:00 88 02/11/22 15:17 36.9 C 102 H 20 113/80 98 02/11/22 11:29 36.9 C 92 H 18 128/87 93 02/11/22 07:29 36.8 C 94 H 20 127/84 97 O2 Del Method 02/11/22 08:00 02/11/22 15:17 Room Air 02/11/22 11:29 Room Air 02/11/22 07:29 Room Air Intake & Output 02/09/22 02/10/22 02/11/22 02/12/22 06:59 06:59 06:59 06:59 Intake Total 901.6 / 901.6 2504.90 / 2504.90 Balance 901.6 / 901.6 2504.90 / 2504.90 Weight 217 lb 2.485 oz 216 lb 0.848 oz Laboratory Results Laboratory Results - last 48 hr 02/09/22 02/09/22 02/09/22 20:04 20:04 20:04 APTT Cancelled PTT Ratio Cancelled Estimat Average Glucose 355 Hemoglobin A1c 14.0 H B-Natriuretic Peptide 315 H Diagnostic Findings Telemetry personally reviewed: Sinus rhythm in the 90s to 100s. No arrhythmia. Medications Administered Current Inpatient Medications Acetaminophen (Acetaminophen 325 Mg Tab) 650 mg PO Q4H PRN PRN Reason: MILD Pain (1,2,3) Stop: 03/11/22 12:00 Apixaban (Apixaban 5 Mg Tablet) 5 mg PO BID [facility] Stop: 03/12/22 08:59 Last Admin: 02/11/22 08:37 Dose: 5 mg Aspirin (Aspirin 81 Mg Ectab) 81 mg PO QAM [facility] Stop: 03/12/22 08:59 Last Admin: 02/11/22 08:37 Dose: 81 mg Atorvastatin Calcium (Atorvastatin 40 Mg Tab) 40 mg PO QAM [facility] Stop: 03/12/22 08:59 Last Admin: 02/11/22 08:37 Dose: 40 mg Glipizide (Glipizide 5 Mg Tab) 5 mg PO QDB [facility] Stop: 03/12/22 07:59 Last Admin: 02/11/22 07:36 Dose: 5 mg Loratadine (Loratadine 10 Mg Tab) 10 mg PO QAM [facility] Stop: 03/13/22 12:44 Last Admin: 02/11/22 13:01 Dose: 10 mg Metoprolol Tartrate (Metoprolol Tartrate 50 Mg Tab) 50 mg PO BID [facility] Stop: 03/12/22 20:59 Last Admin: 02/11/22 08:37 Dose: 50 mg PG Care Time/CCT Total # of Minutes Spent Total Time Spent with Patient: Total time spent is greater than 50% in coordination of care (as documented) at patient's floor/unit and/or counseling patient: Coding Level of Care Code 67972 Subseq Hosp Care Lvl [address] elevation (STEMI) myocardial infarction involving left anterior descending coronary artery I21.02 Coronary artery disease I25.10 Ischemic cardiomyopathy I25.5 LV (left ventricular) mural thrombus I51.3
[2022-02-11] MEDS: lisinopril 2.5 MG TAB PO SCH (18:09)
[2022-02-12] MEDS: glipiZIDE 5 MG TAB PO SCH (07:35)
[2022-02-12] MEDS: ASPIRIN 81 MG ECTAB PO SCH (08:15)
[2022-02-12] MEDS: lisinopril 2.5 MG TAB PO SCH (08:15)
[2022-02-12] MEDS: APIXABAN 5 MG TABLET PO SCH (08:15)
[2022-02-12] MEDS: ATORVASTATIN 40 MG TAB PO SCH (08:15)
[2022-02-12] MEDS: LORATADINE 10 MG TAB PO SCH (08:16)
[2022-02-12] MEDS ORDERED: METOPROLOL SUCC 50MG EXT REL TAB PO SCH (09:00)
[2022-02-12] MEDS ORDERED: METOPROLOL TARTRATE 25 MG TAB PO ONE (09:32)
--- NOTE | 2022-02-12 14:11 | Discharge Summary ---
Date of Service February 12, 2022 Admission HPI Per Admitting Provider 42-year-old morbidly obese diabetic female who does not follow with a primary care provider presented from home after experiencing at least 2 days worth of persistent shortness of breath and racing heartbeat. She has profound anxiety to needles. She is accompanied by her who states that she was fairly short of breath 2 days ago and complaining of racing heartbeat but she did not seek medical attention. She thought she would be okay but things continue to worsen and yesterday she had taken a shower and could barely breathe or walk. After the shower she felt a little bit better so did not seek medical attention. However, today she could barely speak a few words without becoming short of breath. He therefore brought her to the emergency department where initial work-up for shortness of breath was performed. An EKG was obtained and was concerning for ST elevation HI. A "heart alert" was called and on my evaluation she continued to her shortness of breath but was fighting the nursing staff and had to be held down for needlesticks and medication administration. I spoke with the regarding need for emergent cardiac catheterization and he agreed after informed consent was provided. Patient was taken to the cardiac catheterization suite and was heavily sedated during the procedure. Despite this, she did intermittently complain of anxiety. We performed cardiac catheterization which demonstrated chronic total occlusion in the LAD as well as of a branch vessel of the circumflex. There were no acute thrombotic lesions, no staining of the vessel to suggest acute occlusion. I did attempt to cross the LAD lesion with a guidewire but this was unsuccessful and the lesion was acting like a chronic total occlusion. Patient had no chest pain and after slowing her heart rate her shortness of breath was significantly improved. I therefore decided to abandon further attempts since we do not have cardiac surgery available at this institution. Patient was then returned to the recovery area where a stat echocardiogram was performed. As I feared, she has significant LAD territory wall motion abnormality and there was a large apical thrombus. She was initiated back on heparin and I spoke with her regarding her cardiac situation. She was much more calm at this point and is now ready for work-up and management. Admission Exam (Per Admitting) Constitutional WD/WN, vitals as above (Morbidly obese. Very anxious.) Eyes PERRL, conjunctivae normal, anicteric sclerae ENMT external ear and nose normal, oropharynx normal Mallampati Class: IV Respiratory normal respiratory effort, lungs clear to auscultation Cardiovascular RRR, no murmur, no edema Musculoskeletal no cyanosis or clubbing, extremities motor strength 09/07 Discharge Data Consultations 02/09/22 13:39 Consult Hospitalist Routine 02/10/22 07:39 Consult Psychiatry Routine Procedures Performed Operation Date: 02/09/22 11:15 Actual Procedures p Cineradiography w/Routine Exam - Ben Patton MD, PhD p Cath, Coronaries ONLY (no LV) - Ben Patton MD, PhD s Ultrasound Vascular Access - Ben Patton MD, PhD s Placement Art Occlusive Device - Ben Patton MD, PhD Diabetes Follow Up Diabetes Follow Up: Diabetes Follow-up Needed for HgbA1c >9%,Newly Diagnosed Diabetes Hospital Course (1) ST elevation (STEMI) myocardial infarction involving left anterior descending coronary artery: Cardiac catheterization revealed chronic total occlusion. Plan for tertiary center referral as an outpatient to the "heart team" regarding revascularization via coronary artery bypass grafting versus PCI for chronic total occlusion. Continue medical management as below. (2) Coronary artery disease: Severe multivessel disease. Chronic total occlusion of LAD with col lateralization. Occlusion of obtuse marginal (too small for PCI). Medical management to include low-dose aspirin, high intensity statin therapy, beta- kendra, and JAMIR inhibitor. (3) Ischemic cardiomyopathy: Moderately reduced EF on echo with LAD territory wall motion abnormalities. Has not demonstrated any evidence of volume overload. Chronic heart failure regimen with Toprol-XL and lisinopril. Does not require loop diuretic at this time and does not meet criteria for Entresto or ICD. (4) LV (left ventricular) mural thrombus: Large thrombus noted on echo. Has been placed on Eliquis 5 mg p.o. twice daily. She also was noted to have paroxysmal atrial fibrillation so lifelong anticoagulation is recommended at this point. Plan ASSESSMENT/PLAN: 1. STEMI: No angina. Reportedly subacute presentation. LAD lesion was unable to be crossed with interventional wire. Interventional cardiology has recommended medical therapy with consideration of evaluation of the CT surgery capable center for consideration of CABG versus HEAT TREATING BLUER PCI. Continue beta-kendar. Continue aspirin 81 mg daily. High-intensity statin therapy. Recommend JAMIR- inhibitor. 2. Ischemic cardiomyopathy: She does not appear hypervolemic on exam, however difficult neck exam. Based on her description, class 1 symptoms. Will start metoprolol succinate tomorrow morning in place of metoprolol tartrate. Would titrate as tolerated. Recommend JAMIR-inhibitor. If she should develop class 2 symptoms or greater, would recommend Entresto. Recommend labs in 5-7 days to monitor renal function and potassium. She is not against doing such and has inquired about having outpatient labs arranged with sedation. Difficult situation. Unclear if this would be possible or not. If unable to monitor labs, may need to reconsider the use of medications that would require such monitoring, for safety reasons. For now, while inpatient, start low-dose lisinopril. Low-sodium diet. Diuretic not necessary at this time. ICD for primary prevention is not indicated at current EF. 3. LV thrombus: She is on anticoagulation therapy. Recommend monitoring CBC periodically. 4. CAD: As described by interventional Cardiology, found to have occluded LAD, OM1, severe CAD of OM2, and otherwise nonobstructive CAD. Right to left collaterals reported. No angina. Continue aspirin, high-intensity statin therapy, beta-kendra. Start JAMIR-inhibitor and can continue with able to monitor labs periodically. 5. Disposition: She is hoping to be discharged tomorrow. No evidence of arrhythmia thus far. Follow-up within [address] Patton, in the cardiology office. Plan of care discussed with Dr. Phillips of the primary ospitalist service. UPDATE: Patient's heart rate was above target. Additional metoprolol was provided. This will be titrated up as an outpatient. Patient is to follow-up in my office within 2 weeks of discharge. She may return to work in 3 days on a limited basis with limited exertion. She has notified me that she prefers referral to [facility] in [place] regarding CT surgery/HEAT TREATING BLUER-PCI. At this time, she is appropriate for discharge from a cardiovascular standpoint with her current medical regimen and intended plan of care as outlined. Discharge Instructions ACTIVITY RECOMMENDATIONS: It is common to feel weak and fatigue for a few days. * Do not drive or operate any motorized equipment for the next three days. * Limit stair usage (2 or 3 trips a day only) for the next three days. * Do not lift anything heavier than 10 pounds for the next three days. * Do not engage in vigorous exercise or any sports for the next five days. * You may shower the day after your procedure, but do not immerse the area for three days. Cleanse the site gently with soap and water. SPECIAL CARE INSTRUCTIONS: * You may replace the pressure dressing or band-aid the morning after the procedure. * After your procedure, it is normal to have a small bruise or small lump at the site. Examine your site daily for any change in the bruise or lump, redness, swelling, drainage or numbness. Notify your doctor if any change. BLEEDING: * If there is a small amount of bleeding at the site, lie down and apply firm pressure with a clean cloth for ten minutes. When the bleeding stops, lie quietly keeping the procedure limb straight for six hours. Notify your doctor as soon as possible. * If the bleeding does not stop after ten minutes or if there is a large amount of bleeding or spurting, call 911 immediately. Continue to lie down and hold firm pressure until help arrives. SKIN IRRITATION: * You may experience some redness and/or swelling in the area where radiation was administered. If any skin irritation occurs, please contact your family physician. FOLLOW UP VISIT: Keep any scheduled doctor appointments. Coding Level of Care Code D/C DAY MANAGEMENT >[address] (STEMI) myocardial infarction involving left anterior descending coronary artery I21.02 Coronary artery disease I25.10 Ischemic cardiomyopathy I25.5 LV (left ventricular) mural thrombus I51.3
--- NOTE | 2022-02-12 15:22 | Electrocardiogram Report ---
Test Reason : Blood Pressure : / mmHG Vent. Rate : 103 BPM Atrial Rate : 103 BPM P-R Int : 164 ms QRS Dur : 078 ms QT Int : 320 ms P-R-T Axes : 031 -29 013 degrees QTc Int : 419 ms Age and gender specific ECG analysis Sinus tachycardia Low voltage QRS Anterolateral injury pattern ACUTE VA / STEMI Abnormal ECG When compared with ECG of 10-FEB-2022 07:38, No significant change Confirmed by Khris Koroma ([id number]) on 02/12/2022 3:22:09 PM Referred By: Ben Patton Confirmed By:Khris Koroma
== END 2022-02-12 12:39 | disposition home or self-care (01) | DRG 281 ==
LOC: ED 10:23 → CC 11:20 → SUATTDRO 12:09 → 2E 12:09
PROC: CLB.CCO (2022-02-09 11:15)
DX: F41.9 Anxiety disorder, unspecified; I25.10 Atherosclerotic heart disease of native coronary artery without angina pectoris; I21.02 ST elevation (STEMI) myocardial infarction involving left anterior descending coronary artery; E11.9 Type 2 diabetes mellitus without complications; I48.0 Paroxysmal atrial fibrillation; E78.5 Hyperlipidemia, unspecified; E87.20 Acidosis, unspecified; J30.9 Allergic rhinitis, unspecified; I25.5 Ischemic cardiomyopathy; E66.9 Obesity, unspecified; I51.3 Intracardiac thrombosis, not elsewhere classified; Z68.41 Body mass index [BMI] 40.0-44.9, adult; F40.298 Other specified phobia